=== PATIENT | female | born 1980 ===

== ENCOUNTER 2017-02-22 11:17 | Inpatient (IN) | payer BC ==
[2017-02-22 11:18] VITALS: BMI 34.9
--- NOTE | 2017-02-22 11:53 | ED PDOC ---
HPI: Psych/Substance Abuse Time Seen by Provider: 02/22/17 11:41 Chief Complaint (Nursing): Psychiatric Evaluation Chief Complaint (Provider): Psychiatric Evaluation History Per: Patient, Family History/Exam Limitations: no limitations Onset/Duration Of Symptoms: Sudden Onset Current Symptoms Are (Timing): Still Present Suicide/Self Injury Attempted (Context): None Modifying Factor(s): None Severity: None Additional Complaint(s): Patient is a 37 year old female who presents to ED accompanied by family for intentional overdose of Trazadone at 1040 today. Patient states she was not trying to harm herself, notes she is unable to sleep at night and just wanted to sleep. Denies any medication complaints at this time. States that she immediately vomited after swallowing the pills but is unsure how many were expelled. Patient also reports left sided chest pain which has been chronic for 1 month. Past Medical History Reviewed: Historical Data, Nursing Documentation, Vital Signs Vital Signs: Last Vital Signs Temp 97.8 F 02/22/17 11:31 Pulse 78 02/22/17 11:31 Resp 19 02/22/17 11:31 BP 133/78 02/22/17 11:31 Pulse Ox 100 02/22/17 11:31 - Medical History PMH: Depression, HTN Denies: Diabetes, Hepatitis, HIV, Seizures, Sexually Transmitted Disease - Surgical History Surgical History: No Surg Hx - Family History Family History: States: Unknown Family Hx - Living Arrangements Living Arrangements: With Family - Immunization History Hx Tetanus Toxoid Vaccination: No Hx Influenza Vaccination: No Hx Pneumococcal Vaccination: No - Home Medications Home Medications: Ambulatory Orders Medication Instructions Recorded Citalopram [celEXA] 20 mg PO DAILY 04/25/15 Pantoprazole Sodium [Protonix] 20 mg PO DAILY #14 ect 09/01/16 Ibuprofen [Motrin Tab] 600 mg PO Q8 #30 tab 12/25/16 Acetaminophen with Codeine 1 tab PO Q4H 02/22/17 [Tylenol with Codeine #3 Tablet] Cephalexin [cephalexin] 500 mg PO BID 02/22/17 traZODone [Desyrel] 50 mg PO BID 02/22/17 - Allergies Allergies/Adverse Reactions: Allergies Allergy/AdvReac Type Severity Reaction Status Date / Time No Known Allergies Allergy Verified 09/01/16 17:26 Review of Systems ROS Statement: Except As Marked, All Systems Reviewed And Found Negative Constitutional: Negative for: Weakness Eyes: Negative for: Vision Change Cardiovascular: Positive for: Chest Pain. Negative for: Palpitations, Light Headedness Respiratory: Negative for: Shortness of Breath Gastrointestinal: Negative for: Nausea, Vomiting, Abdominal Pain Skin: Negative for: Rash Neurological: Negative for: Weakness Physical Exam - Reviewed Nursing Documentation Reviewed: Yes Vital Signs Reviewed: Yes - Physical Exam Appears: Positive for: Non-toxic, No Acute Distress Head Exam: Positive for: ATRAUMATIC Skin: Positive for: Normal Color, Warm. Negative for: Pallor Eye Exam: Positive for: Normal appearance Neck: Positive for: Normal, Painless ROM Cardiovascular/Chest: Positive for: Regular Rate, Rhythm. Negative for: Murmur Respiratory: Positive for: Normal Breath Sounds. Negative for: Respiratory Distress Gastrointestinal/Abdominal: Positive for: Normal Exam. Negative for: Tenderness , Distended Extremity: Positive for: Normal ROM Neurologic/Psych: Positive for: Alert, Oriented - Laboratory Results Result Diagrams: 02/22/17 12:03 02/22/17 12:03 - ECG O2 Sat by Pulse Oximetry: 100 (RA) Pulse Ox Interpretation: Normal Medical Decision Making Medical Decision Making: Time: 1145 Initial impression: Intentional overdose. Depression Initial plan: -- EKG -- Tylenol level -- Alcohol serum -- CMP -- BMP -- UDS -- Salicylate -- Crisis evaluation -- Urine preg -- Urine dip -- CBC Stable vitals. EKG unchanged. PCC recommendations appreciated. Scribe Attestation: Documented by Sherrill Balderrama acting as a scribe for Jordin Singh MD MD Scribe Attestation: All medical record entries made by the Scribe were at my direction and personally dictated by me. I have reviewed the chart and agree that the record accurately reflects my personal performance of the history, physical exam, medical decision making, and the department course for this patient. I have also personally directed, reviewed, and agree with the discharge instructions and disposition. ED OBSERVATION Date of observation admission: 02/22/17 Time of observation admission: 13:00 - Observation admission statement Patient is being placed in observation because:: Overdose evaluation - Goals of Observation Goals of observation are:: Rule out complications of overdose and medical clearance - Progress Note Progress Note: 02/22/17 14:05 Disposition - Clinical Impression Clinical Impression: Depression, Overdose - Patient ED Disposition Is Patient to be Admitted: Yes Counseled Patient/Family Regarding: Studies Performed, Diagnosis - Disposition Disposition Time: 16:15 Condition: FAIR - Pt Status Changed To: Hospital Disposition Of: Inpatient - Admit Certification Admit to Inpatient:: After my assessment, the patient will require hospitalization for at least two midnights. This is because of the severity of symptoms shown, intensity of services needed, and/or the medical risk in this patient being treated as an outpatient. - POA Present On Arrival: None
[2017-02-22 12:34] LABS: BASO % 0.4 % (0.0-2.0); EOS # 0.2 K/uL (0.0-0.7); EOS % 2.2 % (0.0-4.0); HEMATOCRIT 37.4 % (34.0-47.0); LYMPH # 2.9 K/uL (1.0-4.3); LYMPH % 31.1 % (20.0-40.0); MEAN CELL VOLUME 79.2 fl (81.0-99.0); MEAN CORPUSCULAR HEMOGLOBIN 25.9 pg (27.0-31.0); MEAN CORPUSCULAR HGB CONC 32.8 g/dL (33.0-37.0); MEAN PLATELET VOLUME 9.6 fl (7.2-11.7); MONO # 0.5 K/uL (0.0-0.8); MONO % 5.3 % (0.0-10.0); NEUT # 5.6 K/uL (1.8-7.0); NRBC % 0.1 % (0.0-0.0); RED CELL DISTRIBUTION WIDTH 14.3 % (11.5-14.5); WHITE BLOOD COUNT 9.2 K/uL (4.8-10.8)
[2017-02-22 12:51] LABS: ALB/GLOB RATIO 1.1 (1.0-2.1); ALCOHOL SERUM < 10 mg/dl (0-10); ALKALINE PHOSPHATASE 87 U/L (38-126); ALT/SGPT 35 U/L (9-52); AST/SGOT 22 U/L (14-36); BILIRUBIN,TOTAL 0.4 mg/dl (0.2-1.3); BLOOD UREA NITROGEN 11 mg/dl (7-17); CALCIUM 8.9 mg/dL (8.4-10.2); CARBON DIOXIDE 25 mmol/L (22-30); CHLORIDE 106 mmol/L (98-107); GFR AFRICAN-AMERICAN > 60; GLUCOSE,RANDOM 136 mg/dL (65-105); POTASSIUM 3.4 MMOL/L (3.6-5.0); SODIUM 147 mmol/l (132-148); TOTAL PROTEIN 7.6 G/DL (6.3-8.2)
[2017-02-22] MEDS ORDERED: Potassium Chloride 20 mEq ER Tab PO ONE ×2 (13:12→17:08)
[2017-02-22 17:23] VITALS: O2SAT 99
[2017-02-22] MEDS ORDERED: Acetaminophen 160 mg/5 ml UD ONE (17:42)
[2017-02-22] MEDS ORDERED: DiphenhydrAMINE 50 mg/ml Inj IM PRN (17:57)
[2017-02-22] MEDS ORDERED: Magnesium Hydroxide Susp 30 ml UD PO PRN (17:57)
[2017-02-22] MEDS ORDERED: Alum-Mag Hydrox-Simethicone Susp (30 mL) PO PRN (17:57)
--- NOTE | 2017-02-23 09:27 | CP.PCM.CON ---
History of Present Illness - History of Present Illness History of Present Illness: 37 yo female with no significant PMH admitted to psyche unit because of suicidal intent by trying to overdose with Trazodone. Review of Systems - Review of Systems All systems: reviewed and no additional remarkable complaints except (aside from those mentioned aboe, 12 point system review were negative by me) Past Patient History - Infectious Disease Hx of Infectious Diseases: None - Past Social History Smoking Status: Never Smoked Alcohol: None Drugs: Denies - CARDIAC Hx Cardiac Disorders: No Hx Hypertension: No - PULMONARY Hx Respiratory Disorders: No - NEUROLOGICAL Hx Neurological Disorder: No - HEENT Hx HEENT Problems: No - RENAL Hx Chronic Kidney Disease: No - ENDOCRINE/METABOLIC Hx Endocrine Disorders: No - HEMATOLOGICAL/ONCOLOGICAL Hx Blood Disorders: No - INTEGUMENTARY Hx Dermatological Problems: No - MUSCULOSKELETAL/RHEUMATOLOGICAL Hx Musculoskeletal Disorders: Yes - GENITOURINARY/GYNECOLOGICAL Hx Genitourinary Disorders: No - PSYCHIATRIC Hx Anxiety: Yes Hx Depression: Yes Hx Substance Use: No - SURGICAL HISTORY Hx Surgeries: No - ANESTHESIA Hx Anesthesia: No Meds Allergies/Adverse Reactions: Allergies Allergy/AdvReac Type Severity Reaction Status Date / Time No Known Allergies Allergy Verified 09/01/16 17:26 - Medications Medications: Current Medications Acetaminophen (Tylenol 325mg Tab) 650 mg PO Q4 PRN PRN Reason: Pain, moderate (4-7) Al Hydrox/Mg Hydrox/Simethicone (Maalox Plus 30 Ml) 30 ml PO Q4 PRN PRN Reason: Dyspepsia Citalopram Hydrobromide (Celexa) 20 mg PO DAILY MICHELLE Last Admin: 02/23/17 09:13 Dose: 20 mg Diphenhydramine HCl (Benadryl) 50 mg IM Q6 PRN PRN Reason: Extrapyramidal S/S Unable PO Diphenhydramine HCl (Benadryl) 50 mg PO HS PRN PRN Reason: Sleep Last Admin: 02/22/17 21:47 Dose: 50 mg Haloperidol (Haldol) 5 mg PO Q4 PRN PRN Reason: Agitation Haloperidol Lactate (Haldol) 5 mg IM Q4 PRN PRN Reason: Agitation, Unable to Take PO Lorazepam (Ativan) 2 mg PO Q4 PRN PRN Reason: Anxiety/Agitation Lorazepam (Ativan) 2 mg IM Q4 PRN PRN Reason: Anxiety/Agitation,Unable PO Magnesium Hydroxide (Milk Of Magnesia) 30 ml PO HS PRN PRN Reason: Constipation Physical Exam - Constitutional Appears: No Acute Distress - Head Exam Head Exam: ATRAUMATIC - Eye Exam Eye Exam: absent: Scleral icterus - ENT Exam ENT Exam: Mucous Membranes Moist - Neck Exam Neck exam: Negative for: Meningismus - Respiratory Exam Respiratory Exam: absent: Rhonchi, Wheezes, Respiratory Distress - Cardiovascular Exam Cardiovascular Exam: REGULAR RHYTHM, +S1, +S2 - GI/Abdominal Exam GI & Abdominal Exam: Soft. absent: Tenderness - Rectal Exam Rectal Exam: Deferred - Neurological Exam Neurological exam: Alert, Oriented x3 - Psychiatric Exam Psychiatric exam: Normal Affect - Skin Skin Exam: Dry, Intact Results - Vital Signs Recent Vital Signs: Last Vital Signs Temp 98.8 F 02/22/17 17:29 Pulse 74 02/22/17 17:29 Resp 18 02/22/17 17:56 BP 122/77 02/22/17 17:29 Pulse Ox 99 02/22/17 17:29 - Labs Result Diagrams: 02/22/17 12:03 02/22/17 12:03 Assessment & Plan (1) Suicidal intent Status: Acute Comment: psyche is managing
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
[2017-02-23 10:20] LABS: T4 9.88 ug/dl (5.5-11.0)
[2017-02-23 10:34] LABS: THYROID STIMULATING HORMONE 5.42 mIU/ML (0.46-4.68)
--- NOTE | 2017-02-23 20:57 | CARD ---
APPROVED REPORT EKG Measurement Heart [id number] <Conclusion> Normal sinus rhythm with sinus arrhythmia Normal ECG
--- NOTE | 2017-02-23 20:58 | CARD ---
APPROVED REPORT EKG Measurement Heart [id number] <Conclusion> Normal sinus rhythm with sinus arrhythmia Normal ECG
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
[2017-02-24 10:27] VITALS: BP 138/84; PULSE 77; RESP 16; TEMP 97.5
== END 2017-02-24 13:30 | disposition home or self-care (01) | DRG 881 ==
LOC: H.ER 11:17 → H.EROBSV 14:04 → OBSVTOIN 16:23 → H.ERHOLD 16:26 → H.PSYCH 17:36
PROVIDERS: ADMIT Psychiatry & Neurology Psychiatry; ATTEND Psychiatry & Neurology Psychiatry
PROC: GZHZZZZ Group Psychotherapy (ICD-10-PCS; principal; 2017-02-22)
DX: F32.9 Major depressive disorder, single episode, unspecified (principal); Z91.14 Patient's other noncompliance with medication regimen; I10 Essential (primary) hypertension; T43.211A Poisoning by selective serotonin and norepinephrine reuptake inhibitors, accidental (unintentional), initial encounter; R11.10 Vomiting, unspecified; Y92.009 Unspecified place in unspecified non-institutional (private) residence as the place of occurrence of the external cause